=== PATIENT | female | born 1945 | race Asian ===

== ENCOUNTER 2019-01-03 10:58 | Emergency (ER) | payer MEDICARE, OTHER ==
[~2019-01-03] VITALS: Ht 162.6 cm; Wt 73.6 kg
[~2019-01-03 10:58] MED LIST: OMEG1CAP74 PO; PHEN100C23 PO
[2019-01-03] MEDS ORDERED: HYDROGEN PEROXIDE 118 ML SOLUTION TP ONE (12:30)
[2019-01-03] MEDS ORDERED: CARBAMIDE PEROXIDE 6.5% 15 ML OTIC SOLUTION AD ONE (12:30)
[2019-01-03 13:15] VITALS: BP 121/68
== END 2019-01-03 14:02 | disposition home or self-care (01) ==
LOC: EMS 10:59
DX: H66.91 Otitis media, unspecified, right ear (principal); H61.21 Impacted cerumen, right ear; R03.0 Elevated blood-pressure reading, without diagnosis of hypertension
CPT/HCPCS: 69209